=== PATIENT | female | born 1990 | race Caucasian/White ===

== ENCOUNTER 2016-09-11 11:07 | Emergency (ER) | payer OTHER ==
--- NOTE | ~2016-09-11 | CT99 ---
[facility] A Service [facility] RADIOLOGY TEXT RESULTS PATIENT: KAYLEIGH WEST LOCATION: SED : [birth year] UNIT #: [id number] AGE: [address]: Karoline Messina SEX: F ORDER DR: [id number] [address] [address] [id number] E MR#: [id number] Acc #: [id number] NAME: KAYLEIGH WEST : 1990 SEX: F STUDY DATE/TIME: 09/11/2016 12:09 UNIT: SED ROOM: STUDY DESCRIPTION: CT Maxillofacial Area W Cont Attending Physician: Karoline Messina Pa-C Ordering Physician: Kiesha Beck Primary Care Physician: Andres Gongora M.D. MEDICAL IMAGING REPORT This report is preliminary unless electronic signature is present. EXAM CT maxillofacial bones HISTORY Redness left side of face for 2 days and left cheek region. Evaluate for abscess. FINDINGS Axial images performed through the maxillofacial region following IV contrast. Multiplanar reconstructed images were reviewed at a workstation. This CT exam was performed with one or more of the following radiation dose reduction techniques: automatic exposure control, adjustment of mA and/or kV according to patient size, and iterative reconstruction. FINDINGS Examination demonstrates skin thickening and subcutaneous induration overlying the left cheek and infraorbital region. This is compatible a localized cellulitis. No drainable fluid collection or abscess. Underlying osseous structures appear normal. The paranasal sinuses appear normal. The orbits appear normal. Normal enhancement of the head and neck vasculature. IMPRESSION Left infraorbital and cheek soft tissue swelling and edema with minimal enhancement postcontrast. Findings compatible with cellulitis but no evidence of abscess or drainable fluid collection and no deep compartment involvement is identified. Dictated by.Yola. Winston Hatfield M.D. [facility] A Service [facility] RADIOLOGY TEXT RESULTS PATIENT: KAYLEIGH WEST LOCATION: SED : 90 UNIT #: [id number] AGE: [address]: Karoline Messina SEX: F ORDER DR: MEGHAN/krys TD: 09/11/2016 18:45 JOB #: [id number] MEDICAL IMAGING REPORT
[~2016-09-11 11:07] MED LIST: ACETAMINOPHEN PO; AMOXICILLIN500 M1 PO; ANTIBIOTIC; AURALGAN EAR DR14 ML OT; BACTRIM DS TABL1 TA1 PO; BACTRIM DS TABL1 TAB PO; BACTROBAN15 GM TOP; BENZONATATE PO; BIRTH CONTROL PILL PO; CELEXA PO; CLEOCIN PO; CORTISPORI10 ML OTIC AU; FLEXERIL PO; FLEXERIL10 MG PO; HYDROCODON-ACE1 EAC7 PO; IBUPROFEN800 MG PO; KETOPROFEN PO; LORTAB 5/500 TA1 TA1 PO; LORTAB 7.5-5001 TAB PO; NAPROSYN500 MG PO; NO MEDICATIONS; PHENERGAN PO; PRENATAL1 TA1 PO; SUDAFED PO; VOLTAREN75 MG PO; ZITHROMAX PO
[2016-09-11 11:18] LABS: BASOPHIL# 0.1 X10e3 (0-0.3); BASOPHIL% 0.7 % (0-2.5); DIFF IND NO; EOSINOPHIL# 0.1 X10e3 (0-0.7); EOSINOPHIL% 1.8 % (0.0-7.0); HEMATOCRIT 41.3 % (35.0-45.0); HEMOGLOBIN 13.8 gm/dL (12.0-16.0); LYMPHOCYTE# 2.1 X10e3 (1.0-3.5); MEAN CELL VOLUME 85.8 FL (83-96); MEAN CORPUSCULAR HEMOGLOBIN 28.6 PG (28-34); MEAN CORPUSCULAR HGB CONC 33.3 g/dL (30-36); MONOCYTE# 0.6 X10e3 (0-1.0); MONOCYTE% 7.5 % (3.0-12.0); NEUTROPHIL# 4.8 X10e3 (1.5-7.1); PLATELET COUNT 262 X10e3 (140-420); RED BLOOD COUNT 4.81 X10e (3.90-5.30); RED CELL DISTRIBUTION WIDTH 12.4 % (11.0-15.5); WHITE BLOOD COUNT 7.7 X10e3 (4.0-10.5)
[2016-09-11 11:39] LABS: ALBUMIN SERUM 4.1 g/dL (3.5-5.0); ALKALINE PHOSPHATASE 74 U/L (32-92); ALT (SGPT) 21 U/L (10-40); AST (SGOT) 21 U/L (10-42); BILIRUBIN,TOTAL 0.7 mg/dL (0.2-2.0); BLOOD UREA NITROGEN 12 mg/dL (9-23); CALCIUM SERUM 8.9 mg/dL (8.4-10.2); CARBON DIOXIDE 23 mmol/L (22-31); CHLORIDE 105 mmol/L (100-111); CREATININE SERUM 0.8 mg/dL (0.6-1.4); GLOM FILT RATE Estimated ABOVE60 mL/min (>60); GLUCOSE FASTING 103 mg/dL (70-110); POTASSIUM 3.8 mmol/L (3.5-5.1); PROTEIN TOTAL SERUM 7.2 g/dL (6.0-8.3); SODIUM 136 mmol/L (135-145)
== END 2016-09-11 14:45 | disposition home or self-care (01) ==
LOC: SED 11:07
PROVIDERS: Physician Assistant
DX: L03.211 Cellulitis of face (principal); F17.200 Nicotine dependence, unspecified, uncomplicated
CPT/HCPCS: 70487; 80053; 84703; 85025; 96365; 96375; 99284; J2270; J2405; Q9967

== ENCOUNTER 2017-02-01 20:59 | Emergency (ER) | payer OTHER ==
[~2017-02-01] VITALS: Ht 175.3 cm; Wt 93.0 kg
--- NOTE | ~2017-02-01 | CR127 ---
[facility] A Service of [facility] RADIOLOGY TEXT RESULTS PATIENT: KAYLEIGH WEST LOCATION: CFTX : [birth year] UNIT #: [id number] AGE: [address]: Enmanuel Redding SEX: F ORDER DR: [id number] [facility] [address] [place], [place] [address] [id number] E MR#: [id number] Acc #: [id number] NAME: KAYLEIGH WEST : 1990 SEX: F STUDY DATE/TIME: 02/01/2017 22:28 UNIT: [facility] ROOM: STUDY DESCRIPTION: CR Foot Complete Min 3 View Rt Attending Physician: Enmanuel Redding P.A.-C. Ordering Physician: Ed Dong Garcia M.D. Primary Care Physician: Andres Gongora M.D. MEDICAL IMAGING REPORT This report is preliminary unless electronic signature is present EXAM Right foot, 02/01/2017 at 22:28. INDICATIONS Foot pain today after a fall. FINDINGS The tarsal, metatarsal, and phalangeal elements are all anatomically normal in position and alignment. There are no articular defects. No fractures or radiopaque foreign bodies in the soft tissues are apparent. IMPRESSION Normal right foot. Dictated by... Guillermo Casas Jr., M.D. THIS IS AN ELECTRONICALLY VERIFIED REPORT Guillermo Casas Jr., M.D. at 02/02/2017 6:53 AM NIKHIL/lio TD: 02/01/2017 22:53 JOB #: [id number] MEDICAL IMAGING REPORT Page 1 of 1 COPY
== END 2017-02-01 23:03 | disposition home or self-care (01) ==
LOC: CED 20:59 → CFTX 20:59
DX: S93.601A Unspecified sprain of right foot, initial encounter (principal); F17.210 Nicotine dependence, cigarettes, uncomplicated; W01.0XXA Fall on same level from slipping, tripping and stumbling without subsequent striking against object, initial encounter; Y92.009 Unspecified place in unspecified non-institutional (private) residence as the place of occurrence of the external cause
CPT/HCPCS: 73630; 84703; 99283